=== PATIENT | female | born 1960 | race Caucasian/White ===

== ENCOUNTER 2021-04-15 12:37 | Inpatient (IN) | payer MEDICARE, OTHER ==
[~2021-04-15] VITALS: Ht 170.2 cm; Wt 100.6 kg
[2021-04-15 13:44] LABS: Hematocrit 42.7 % (33.0-51.0); Hemoglobin 14.2 g/dL (11.5-16.0); Mean Corpuscular HGB Conc 33.3 g/dL (31.5-36.5); Mean Corpuscular Volume 84 fL (80-100); Platelet Count 416 K/mm3 (150-400); RDW Coefficient Variation 16.8 % (11.7-14.2); RDW Standard Deviation 51.2 fL (35.1-46.3); Red Blood Cell Count 5.07 M/mm3 (3.80-5.20); White Blood Cell Count 13.28 K/mm3 (4.00-11.30)
[2021-04-15] MEDS ORDERED: BREO ELLIPTA 21 EAC1 INH (14:00)
[2021-04-15] MEDS ORDERED: VENL150ER PO (14:01)
[2021-04-15] MEDS ORDERED: CLONAZEPAM1 MG PO (14:01)
[2021-04-15] MEDS ORDERED: OMEP20ER PO (14:01)
[2021-04-15] MEDS ORDERED: LISI20 PO (14:02)
[2021-04-15] MEDS ORDERED: MINIPRESS2 MG PO (14:02)
[2021-04-15] MEDS ORDERED: GLIP2.5ER PO (14:02)
[2021-04-15] MEDS ORDERED: EUTHYROX150 MC1 PO (14:02)
[2021-04-15] MEDS ORDERED: FLUTICASONE-SA1 EA12 INH (14:03)
[2021-04-15] MEDS ORDERED: METOPROLOL TART50 M5 PO (14:03)
[2021-04-15] MEDS ORDERED: SINGULAIR10 MG PO (14:04)
[2021-04-15] MEDS ORDERED: QUETIAPINE FUM PO (14:04)
[2021-04-15] MEDS ORDERED: COMBIVENT RESPIM4 G1 INH (14:04)
[2021-04-15] MEDS ORDERED: METFORMIN HCL500 M2 PO (14:04)
[2021-04-15] MEDS ORDERED: DYAZIDE 37.5-21 EACH PO ×2 (14:05→14:54)
[2021-04-15] MEDS ORDERED: INCRUSE INH (14:08)
[2021-04-15 14:25] LABS: Alanine Aminotransfer (ALT/SGP 60 U/L (12-78); Albumin, Blood 3.8 g/dL (3.4-5.0); Albumin/Globulin Ratio 0.7 (0.8-1.8); Alk Phos 159 U/L (50-136); Anion Gap 13 mmol/L (6-16); Aspartate Aminotrans (AST/SGOT 32 U/L (12-37); Bilirubin, Total 0.8 mg/dL (0.1-1.0); Blood Urea Nitrogen 43 mg/dL (8-24); Bun/Creatinine Ratio 9.2 (12.0-20.0); CO2, Blood 17 mmol/L (21-32); Calcium, Blood 9.3 mg/dL (8.5-10.1); Chloride, Blood 101 mmol/L (98-108); Creatinine, Blood 4.67 mg/dL (0.40-1.00); Globulin, Blood 5.5 g/dL (2.2-4.0); Glomerular Filtration Rate 10 (60-); Glucose, Blood 164 mg/dL (70-99); Potassium, Blood 4.1 mmol/L (3.5-5.5); Sodium, Blood 131 mmol/L (136-145); Total Protein, Blood 9.3 g/dL (6.4-8.2); Troponin I <0.015 ng/mL (0.000-0.040)
[2021-04-15 14:32] LABS: BAND PERCENT MAN 17 % (0-8); BASOPHILS PERCENT MAN 0 % (0-2); EOSINOPHILS PERCENT MAN 0 % (0-6); LYMPHOCYTES ABSOLUTE MAN 1.85 K/mm3 (0.84-5.20); LYMPHOCYTES PERCENT MAN 14 % (21-46); METAMYELOCYTE ABSOLUTE MAN 0.39 K/mm3 (0.00-0.00); METAMYELOCYTE PERCENT MAN 3 % (0-0); MONOCYTES ABSOLUTE MAN 1.32 K/mm3 (0.16-1.47); MONOCYTES PERCENT MAN 10 % (4-13); MYELOCYTE ABSOLUTE MAN 0.79 K/mm3 (0.00-0.00); MYELOCYTE PERCENT MAN 6 % (0-0); NEUTROPHILS ABSOLUTE MAN 8.76 K/mm3 (1.96-9.15); PROMYELOCYTE ABSOLUTE MAN 0.13 K/mm3 (0.00-0.00); PROMYELOCYTE PERCENT MAN 1 % (0-0); SEG NEUTROPHILS PERCENT MAN 49 % (41-73); TOTAL CELLS COUNTED 100
[2021-04-15] MEDS ORDERED: DICL75ER PO (14:51)
[2021-04-15] MEDS ORDERED: INCRUSE ELPT 62.5 INH (14:51)
[2021-04-15] MEDS ORDERED: QUETIAPINE FUM200 M7 PO (14:53)
--- NOTE | 2021-04-15 19:11 | NUR ---
PT ADMITTED TO MEDICAL FLOOR RM 360. REPORT RECEIVED FROM HERLINDA CUELLAR IN ER. PT ARRIVED TO FLOOR A/O X 4 STANDBY ASSIST TO BED. STABLE ON FEET. ORIENTED TO ROOM/CALL LIGHT. BED IN LOW POSITION. MED LIST/ALLERGIES UPDATED. PT REPORTED SHE DOES NOT TAKE MINIPRESS MEDICATION, REPORTS CPAP USE AT HOME AND REQUESTS SLEEP AID. DR. BAINS NOTIFIED OF PT REQUEST AND REQUEST TO DC MINIPRESS. ORDERS RECEIVED. PT GIVEN FLU VACCINE PER REQUEST IN [place], PRIMO WELL. PT STARTED ON FLAGYL AND BOLUS OF IV FLUIDS 500 MLS. REPORT GIVEN TO ONCOMING ALISA ORTEGA.
[2021-04-15 20:18] LABS: Adenovirus F 40/41 Not Detected (NOT DETECT); Astrovirus Not Detected (NOT DETECT); Campylobacter Sp Not Detected (NOT DETECT); Cryptosporidium Not Detected (NOT DETECT); Cyclospora Cayetanensis Not Detected (NOT DETECT); E. Coli O157 Not Detected (NOT DETECT); Entamoeba Histolytica Not Detected (NOT DETECT); Enteroaggregative E. coli-EAEC Not Detected (NOT DETECT); Enteropathogenic E. coli-EPEC Not Detected (NOT DETECT); Enterotoxigenic E. coli-ETEC Not Detected (NOT DETECT); Giardia Lamblia Not Detected (NOT DETECT); Norovirus GI/GII Not Detected (NOT DETECT); Plesiomonas Shigelloides Not Detected (NOT DETECT); Rotavirus A Not Detected (NOT DETECT); Salmonella Sp Detected (NOT DETECT); Sapovirus Not Detected (NOT DETECT); Shiga Toxin-prod E. coli-STEC Not Detected (NOT DETECT); Shigella/Enteroin E. coli-EIEC Not Detected (NOT DETECT); Vibrio Cholerae Not Detected (NOT DETECT); Vibrio Sp Not Detected (NOT DETECT); Yersinia Enterocolitica Not Detected (NOT DETECT)
--- NOTE | 2021-04-15 23:31 | NUR ---
DR BAINS called & updated on positive salmonella on gi panel. PT on flagyl & rocephin. Nausea medicated with reglan 5 mg with helpful effect. Tolerating oral fluids. CO gen pain 8/10 with some relief with 25 mcg of fentanyl.
[2021-04-16 01:35] LABS: BASOPHILS ABSOLUTE AUTO 0.08 K/mm3 (0.00-0.23); BASOPHILS PERCENT AUTO 1 % (0-2); Hemoglobin 11.1 g/dL (11.5-16.0); LYMPHOCYTES ABSOLUTE AUTO 1.43 K/mm3 (0.84-5.20); LYMPHOCYTES PERCENT AUTO 14 % (21-46); MONOCYTES PERCENT AUTO 11 % (4-13); Mean Corpuscular HGB 27.3 pg (26.0-34.0); Mean Corpuscular HGB Conc 32.6 g/dL (31.5-36.5); Mean Corpuscular Volume 84 fL (80-100); Mean Platelet Volume 9.8 fL (9.1-12.4); Platelet Count 275 K/mm3 (150-400); RDW Coefficient Variation 16.4 % (11.7-14.2); RDW Standard Deviation 50.3 fL (35.1-46.3); Red Blood Cell Count 4.06 M/mm3 (3.80-5.20)
[2021-04-16 01:36] LABS: EOSINOPHILS ABSOLUTE AUTO 0.03 K/mm3 (0.00-0.68); EOSINOPHILS PERCENT AUTO 0 % (0-6); IMMATURE GRAN ABSOLUTE AUTO 0.57 K/mm3 (0.00-0.10); IMMATURE GRAN PERCENT AUTO 6 % (0-1); NEUTROPHILS ABSOLUTE AUTO 6.69 K/mm3 (1.96-9.15); NEUTROPHILS PERCENT AUTO 68 % (41-73)
[2021-04-16 03:37] LABS: Alanine Aminotransfer (ALT/SGP 43 U/L (12-78); Albumin, Blood 2.9 g/dL (3.4-5.0); Albumin/Globulin Ratio 0.7 (0.8-1.8); Alk Phos 124 U/L (50-136); Anion Gap 13 mmol/L (6-16); Aspartate Aminotrans (AST/SGOT 12 U/L (12-37); Bilirubin, Total 0.5 mg/dL (0.1-1.0); Blood Urea Nitrogen 50 mg/dL (8-24); CO2, Blood 15 mmol/L (21-32); Calcium, Blood 7.5 mg/dL (8.5-10.1); Chloride, Blood 102 mmol/L (98-108); Creatinine, Blood 5.56 mg/dL (0.40-1.00); Globulin, Blood 4.2 g/dL (2.2-4.0); Glomerular Filtration Rate 8 (60-); Glucose, Blood 165 mg/dL (70-99); Magnesium, Blood 1.7 mg/dL (1.6-2.4); Potassium, Blood 3.5 mmol/L (3.5-5.5); Sodium, Blood 130 mmol/L (136-145); Total Protein, Blood 7.1 g/dL (6.4-8.2); Troponin I <0.015 ng/mL (0.000-0.040)
[2021-04-16 03:46] LABS: BAND PERCENT MAN 22 % (0-8); BASOPHILS PERCENT MAN 0 % (0-2); EOSINOPHILS PERCENT MAN 0 % (0-6); LYMPHOCYTES ABSOLUTE MAN 1.18 K/mm3 (0.84-5.20); LYMPHOCYTES PERCENT MAN 12 % (21-46); METAMYELOCYTE ABSOLUTE MAN 0.29 K/mm3 (0.00-0.00); METAMYELOCYTE PERCENT MAN 3 % (0-0); MONOCYTES ABSOLUTE MAN 0.79 K/mm3 (0.16-1.47); MONOCYTES PERCENT MAN 8 % (4-13); NEUTROPHILS ABSOLUTE MAN 7.62 K/mm3 (1.96-9.15); SEG NEUTROPHILS PERCENT MAN 55 % (41-73); TOTAL CELLS COUNTED 100
--- NOTE | 2021-04-16 05:40 | NUR ---
60 year old Female with 4 day hx of NVD unable to tolerate any oral intake has acute kidney injury with reatinine over 5 this AM & GFR 8 void x 1 & 1 large diarrhea on BSC. She had GI panel in ER positive for salmonella. She has nausea with no vomiting. Medicated several times with 25 mcg of fentanyl with helpful effect. Reglan 5 mg IV helpful for nausea. On tele ST 103, troponins neg. On facility supplied cpap for MANUEL per RT uses MDI COPD. PT has lt ant calf cat scratch hx of cat scratch fever 40 years ago. PT was cleaning her 55 gallon fishtank & siphoning off dirty water reportedly aspirated some around a week ago. HAd IV fluid bolus, NS at 150 ml hour. Unable to collect urine for UA due to mixed with stool .
[2021-04-16 17:13] LABS: Source, Urine Clean Catch
[2021-04-16 17:22] LABS: Appearance, Urine Cloudy (Clear); Bilirubin, Urine Neg (Neg); Blood, Urine 3+ (Neg); Color, Urine Yellow (P-Yellow); Glucose Qualitative, Urine Neg (Neg); Ketones, Urine Neg (Neg); Leukocyte Esterase, Urine 1+ (Neg); Nitrite, Urine Neg (Neg); Protein, Urine 3+ (Neg); Urobilinogen, Urine NORM (Normal)
[2021-04-16 17:48] LABS: Squamous Epithelial Cells Many /hpf (Few)
[2021-04-16 17:49] LABS: Amorphous Mod (0-Heavy); Bacteria Mod /hpf; Renal Epithelial Few /hpf (0-Rare); Transitional Epithelial Cells Mod /hpf (0-Rare)
--- NOTE | 2021-04-16 18:19 | NUR ---
SHIFT SUMMARY: NO ACUTE EVENTS. NO EVENTS ON TELEMETRY, SR-ST 98-105. C/O 8-03/15 CHRONIC PAIN IN R SHOULDER; MEDICATED PER EMAR. STATED THAT OXYCODONE 5 MG "TOOK THE EDGE OFF" THE PAIN BUT DID NOT RELIEVE IT ENOUGH FOR HER TO BE COMFORTABLE; REQUESTING TRAMADOL INSTEAD. REQUIRED MUCH EDUCATION ABOUT MEDICATIONS THAT SHE CAN OR CANNOT HAVE D/T HER KIDNEY INJURY. C/O NAUSEA X1, NO EMESIS, MEDICATED PER EMAR WITH RELIEF. URINE SPECIMEN SENT. GETTING UP TO BSC INDEPENDENTLY. HAVING OCC ANXIETY, DECLINED MEDICATION. STILL HAVING SOME DIARRHEA, BUT IT HAS SLOWED PER HER REPORT. PO INTAKE POOR, ENCOURAING.
[2021-04-17 04:56] LABS: Hematocrit 31.2 % (33.0-51.0); Hemoglobin 10.4 g/dL (11.5-16.0); Mean Corpuscular HGB 27.4 pg (26.0-34.0); Mean Corpuscular HGB Conc 33.3 g/dL (31.5-36.5); Mean Corpuscular Volume 82 fL (80-100); Mean Platelet Volume 10.1 fL (9.1-12.4); Platelet Count 277 K/mm3 (150-400); White Blood Cell Count 8.91 K/mm3 (4.00-11.30)
[2021-04-17 05:18] LABS: Albumin, Blood 2.7 g/dL (3.4-5.0); Anion Gap 11 mmol/L (6-16); Blood Urea Nitrogen 53 mg/dL (8-24); Bun/Creatinine Ratio 9.7 (12.0-20.0); CO2, Blood 15 mmol/L (21-32); Calcium, Blood 7.6 mg/dL (8.5-10.1); Chloride, Blood 106 mmol/L (98-108); Creatinine, Blood 5.48 mg/dL (0.40-1.00); Glomerular Filtration Rate 8 (60-); Glucose, Blood 163 mg/dL (70-99); Potassium, Blood 2.9 mmol/L (3.5-5.5); Sodium, Blood 132 mmol/L (136-145)
--- NOTE | 2021-04-17 07:02 | NUR ---
PT continues with acute renal injury salmonella after injesting fish tank water. RT shoulder chronic pain , needs rt total shoulder replacement. Wants second opinion on need for joan joint replacement. Medicated for 8/10 shoulder pain with helpful effect. No solid intake continues on liquids. Diarrhea on bedside commode, voids some positive UA C & S pending.
[2021-04-17 16:35] LABS: Bun/Creatinine Ratio 13.1 (12.0-20.0); Calcium, Blood 8.1 mg/dL (8.5-10.1); Creatinine, Blood 3.89 mg/dL (0.40-1.00); Potassium, Blood 3.8 mmol/L (3.5-5.5)
--- NOTE | 2021-04-17 18:15 | NUR ---
SHIFT SUMMARY: NO ACUTE EVENTS. NO EVENTS ON TELE, SR-ST 95-102. C/O R SHOULDER AND DIAPHRAGM PAIN; MEDICATED PER EMAR WITH SOME RELIEF. TOLERATING PO INTAKE, DRINKING QUITE A BIT OF ICE WATER. EDUCATED PATIENT ABOUT NORMAL KIDNEY VALUES VS. HER KIDNEY VALUES SO THAT SHE WOULD UNDERSTAND THE SEVERITY OF HER DISEASE. HOME INHALERS BROUGHT IN AND VERIFIED BY PHARMACY. WAS ABLE TO TAKE A SHOWER WITH ASSISTANCE. POTASSIUM REPLACED. HAVING LOOSE STOOL, BUT DECREASED FREQUENCY.
--- NOTE | 2021-04-17 19:27 | NUR ---
ADDENDUM: PUBLICITY PERSON REPORTED PT HAD ST DEPRESSION ON RHYTHM THIS MORNING. ECG DONE, SHOWED SAME. RESEARCHED ADMISSION ECG WHICH SHOWED SAME RHYTHM.
--- NOTE | 2021-04-18 04:30 | NUR ---
SHIFT SUMMARY PT IS A&OX4. RESP EVEN AND UNLABORED. PT C/O PAIN IN RIGHT SHOULDER. PRN PAIN MED ADMINISTERED WITH GOOD EFFECTS. N/S 75ML/HR RUNNING ON 20G LEFT AC. ADLS PROVIDED. SAFETY MEASURES IN PLACE. WILL CONTINUE TO MONITOR.
[2021-04-18 04:46] LABS: Hematocrit 30.2 % (33.0-51.0); Hemoglobin 10.1 g/dL (11.5-16.0); Mean Corpuscular HGB 27.4 pg (26.0-34.0); Mean Corpuscular HGB Conc 33.4 g/dL (31.5-36.5); Mean Corpuscular Volume 82 fL (80-100); Mean Platelet Volume 9.8 fL (9.1-12.4); Platelet Count 283 K/mm3 (150-400); RDW Standard Deviation 48.2 fL (35.1-46.3); Red Blood Cell Count 3.68 M/mm3 (3.80-5.20); White Blood Cell Count 9.74 K/mm3 (4.00-11.30)
[2021-04-18 05:09] LABS: Albumin, Blood 2.7 g/dL (3.4-5.0); Anion Gap 7 mmol/L (6-16); Blood Urea Nitrogen 41 mg/dL (8-24); Bun/Creatinine Ratio 16.7 (12.0-20.0); CO2, Blood 17 mmol/L (21-32); Calcium, Blood 8.4 mg/dL (8.5-10.1); Chloride, Blood 114 mmol/L (98-108); Creatinine, Blood 2.46 mg/dL (0.40-1.00); Glomerular Filtration Rate 20 (60-); Glucose, Blood 135 mg/dL (70-99); Phosphorus, Blood 3.9 mg/dL (2.5-4.9); Potassium, Blood 3.8 mmol/L (3.5-5.5); Sodium, Blood 138 mmol/L (136-145)
--- NOTE | 2021-04-18 17:43 | NUR ---
SHIFT SUMMARY PATIENT IS ALERT AND ORIENTED, AND COOPERATIVE WITH CARE. PATIENT'S BLOOD PRESSURE HAS BEEN ELEVATED THIS AFTERNOON, SYSTOLIC'S IN HIGH 170'S TO 180'S. PATIENT RECEIVED ONE DOSE OF NORVASC 5MG , AND ONE DOSE OF HYDRALIZINE IV A HOUR AFTER DUE TO NO CHANGE. PATIENT'S PRESSURES HAVE STARTED TO COME DOWN. LAST BP WAS 174/98, PATIENT DENIES ANY CHEST PAIN OR SHORTNESS OF BREATH AT THIS TIME. PATIENT HAS HISTORY OF HYPERTENSION. PATIENT DOES SAY THEY HAVE BLOOD PRESSURE MEDICATIONS AT HOME. THIS NURSE WILL CONTINUE TO MONITOR THE PATIENT UNTIL SHIFT CHANGE.
[2021-04-19 04:51] LABS: Albumin, Blood 2.8 g/dL (3.4-5.0); Anion Gap 4 mmol/L (6-16); Blood Urea Nitrogen 23 mg/dL (8-24); CO2, Blood 21 mmol/L (21-32); Calcium, Blood 8.8 mg/dL (8.5-10.1); Chloride, Blood 113 mmol/L (98-108); Creatinine, Blood 1.21 mg/dL (0.40-1.00); Glomerular Filtration Rate 45 (60-); Glucose, Blood 144 mg/dL (70-99); Phosphorus, Blood 2.7 mg/dL (2.5-4.9); Potassium, Blood 3.8 mmol/L (3.5-5.5); Sodium, Blood 138 mmol/L (136-145)
--- NOTE | 2021-04-19 05:13 | NUR ---
END OF SHIFT SUMMARY: Pt A&Ox4. Independent in room. Pt is complaining of headache. Medicated per eMAR. No acute events overnight. Able to voice needs, call light within reach. Pt is resting at this time with wet rag over to relieve headache symptoms.
[2021-04-19] MEDS ORDERED: AMLO5 PO (11:31)
[2021-04-19] MEDS ORDERED: TRAM50 PO (12:41)
--- NOTE | 2021-04-19 13:55 | NUR ---
discharge reviewed with pt. she states underestanding meds and inst. handed tramadol rx. no tele iv remmoved intact. pt dressed self. mom here to drive homem. wheeled to door by aide at [id number]
== END 2021-04-19 14:00 | disposition home or self-care (01) | DRG 872 ==
LOC: ER 12:37 → MEDS 16:05
PROVIDERS: Internal Medicine; Nurse Practitioner Acute Care; Physician Assistant; ADMIT Internal Medicine
DX: A02.1 Salmonella sepsis (principal); N17.9 Acute kidney failure, unspecified; E87.2 Acidosis; A02.0 Salmonella enteritis; J44.9 Chronic obstructive pulmonary disease, unspecified; E87.6 Hypokalemia; E03.9 Hypothyroidism, unspecified; G47.33 Obstructive sleep apnea (adult) (pediatric); K21.9 Gastro-esophageal reflux disease without esophagitis; E66.01 Morbid (severe) obesity due to excess calories; I12.9 Hypertensive chronic kidney disease with stage 1 through stage 4 chronic kidney disease, or unspecified chronic kidney disease; E11.22 Type 2 diabetes mellitus with diabetic chronic kidney disease; M54.50 Low back pain, unspecified; N18.30 Chronic kidney disease, stage 3 unspecified; F41.8 Other specified anxiety disorders; G89.29 Other chronic pain; M25.511 Pain in right shoulder; I95.2 Hypotension due to drugs; T50.2X5A Adverse effect of carbonic-anhydrase inhibitors, benzothiadiazides and other diuretics, initial encounter; T46.4X5A Adverse effect of angiotensin-converting-enzyme inhibitors, initial encounter; Z68.31 Body mass index [BMI] 31.0-31.9, adult; Z99.89 Dependence on other enabling machines and devices; Z79.84 Long term (current) use of oral hypoglycemic drugs; Z79.899 Other long term (current) drug therapy
CPT/HCPCS: 0097U; 36415; 71046; 74176; 80048; 80053; 80069; 81001; 82550; 82947; 83605; 83690; 83735; 84484; 85025; 85027; 87040; 87086; 90686; 93005; 93010; 94660; 94762; 96361; 96374; 99285-25; A9270; G0008; J0360; J0696; J1644; J2405; J2765; J3010; J7030

== ENCOUNTER → 2022-06-12 | Outpatient (CLI) | payer MEDICARE, OTHER ==
[~2022-06-12] MED LIST: AMLO5 PO; BREO ELLIPTA 21 EAC1 INH; CLONAZEPAM1 MG PO; COMBIVENT RESPIM4 G1 INH; DICL75ER PO; DYAZIDE 37.5-21 EACH PO; EUTHYROX150 MC1 PO; FLUTICASONE-SA1 EA12 INH; GLIP2.5ER PO; INCRUSE ELPT 62.5 INH; INCRUSE INH; LISI20 PO; METFORMIN HCL500 M2 PO; METOPROLOL TART50 M5 PO; MINIPRESS2 MG PO; OMEP20ER PO; QUETIAPINE FUM PO; QUETIAPINE FUM200 M7 PO; SINGULAIR10 MG PO; TRAM50 PO; VENL150ER PO
[2022-06-12 19:07] LABS: BASOPHILS ABSOLUTE AUTO 0.07 K/mm3 (0.00-0.23); BASOPHILS PERCENT AUTO 0 % (0-2); EOSINOPHILS ABSOLUTE AUTO 0.17 K/mm3 (0.00-0.68); EOSINOPHILS PERCENT AUTO 1 % (0-6); Hematocrit 33.7 % (33.0-51.0); Hemoglobin 10.9 g/dL (11.5-16.0); IMMATURE GRAN ABSOLUTE AUTO 0.17 K/mm3 (0.00-0.10); IMMATURE GRAN PERCENT AUTO 1 % (0-1); LYMPHOCYTES ABSOLUTE AUTO 2.53 K/mm3 (0.84-5.20); LYMPHOCYTES PERCENT AUTO 15 % (21-46); MONOCYTES ABSOLUTE AUTO 1.34 K/mm3 (0.16-1.47); MONOCYTES PERCENT AUTO 8 % (4-13); Mean Corpuscular HGB 28.1 pg (26.0-34.0); Mean Corpuscular HGB Conc 32.3 g/dL (31.5-36.5); Mean Corpuscular Volume 87 fL (80-100); Mean Platelet Volume 10.4 fL (9.1-12.4); NEUTROPHILS ABSOLUTE AUTO 12.18 K/mm3 (1.96-9.15); NEUTROPHILS PERCENT AUTO 74 % (41-73); NRBC ABSOLUTE 0.02 K/mm3 (0.00-0.02); NRBC Auto 0.1 /100 WBC (0.0-0.2); Platelet Count 311 K/mm3 (150-400); RDW Coefficient Variation 15.5 % (11.7-14.2); RDW Standard Deviation 48.9 fL (35.1-46.3); Red Blood Cell Count 3.88 M/mm3 (3.80-5.20); White Blood Cell Count 16.46 K/mm3 (4.00-11.30)
[2022-06-12 20:41] LABS: Bun/Creatinine Ratio 16.4 (12.0-20.0); Calcium, Blood 8.8 mg/dL (8.5-10.1); Creatinine, Blood 0.85 mg/dL (0.40-1.00); Potassium, Blood 4.1 mmol/L (3.5-5.5)
== END | disposition home or self-care (01) ==
LOC: LAB SHORT 15:50 → LAB 15:50
PROVIDERS: Nurse Practitioner Family
DX: E11.9 Type 2 diabetes mellitus without complications (principal); R32 Unspecified urinary incontinence
CPT/HCPCS: 80048; 85025; 87086

== ENCOUNTER → 2022-08-28 | Outpatient (CLI) | payer MEDICARE, OTHER ==
[2022-08-28 19:37] LABS: BASOPHILS ABSOLUTE AUTO 0.06 K/mm3 (0.00-0.23); BASOPHILS PERCENT AUTO 1 % (0-2); EOSINOPHILS ABSOLUTE AUTO 0.16 K/mm3 (0.00-0.68); EOSINOPHILS PERCENT AUTO 1 % (0-6); Hematocrit 34.3 % (33.0-51.0); Hemoglobin 11.5 g/dL (11.5-16.0); IMMATURE GRAN ABSOLUTE AUTO 0.06 K/mm3 (0.00-0.10); IMMATURE GRAN PERCENT AUTO 1 % (0-1); LYMPHOCYTES ABSOLUTE AUTO 3.18 K/mm3 (0.84-5.20); LYMPHOCYTES PERCENT AUTO 28 % (21-46); MONOCYTES ABSOLUTE AUTO 0.79 K/mm3 (0.16-1.47); MONOCYTES PERCENT AUTO 7 % (4-13); Mean Corpuscular HGB 28.9 pg (26.0-34.0); Mean Corpuscular HGB Conc 33.5 g/dL (31.5-36.5); Mean Corpuscular Volume 86 fL (80-100); Mean Platelet Volume 9.9 fL (9.1-12.4); NEUTROPHILS ABSOLUTE AUTO 7.09 K/mm3 (1.96-9.15); NEUTROPHILS PERCENT AUTO 63 % (41-73); Platelet Count 284 K/mm3 (150-400); RDW Coefficient Variation 15.9 % (11.7-14.2); RDW Standard Deviation 50.4 fL (35.1-46.3); Red Blood Cell Count 3.98 M/mm3 (3.80-5.20); White Blood Cell Count 11.34 K/mm3 (4.00-11.30)
[2022-08-28 20:11] LABS: Calcium, Blood 9.3 mg/dL (8.5-10.1); Creatinine, Blood 0.89 mg/dL (0.40-1.00)
== END | disposition home or self-care (01) ==
LOC: LAB SHORT 17:15
PROVIDERS: Nurse Practitioner Family
DX: E11.9 Type 2 diabetes mellitus without complications (principal)
CPT/HCPCS: 80048; 83036; 85025

== ENCOUNTER → 2022-12-04 | Outpatient (CLI) | payer MEDICARE, OTHER ==
[2022-12-04 18:45] LABS: BASOPHILS ABSOLUTE AUTO 0.06 K/mm3 (0.00-0.23); BASOPHILS PERCENT AUTO 0 % (0-2); EOSINOPHILS PERCENT AUTO 1 % (0-6); Hematocrit 34.9 % (33.0-51.0); Hemoglobin 11.5 g/dL (11.5-16.0); IMMATURE GRAN PERCENT AUTO 1 % (0-1); LYMPHOCYTES ABSOLUTE AUTO 3.48 K/mm3 (0.84-5.20); LYMPHOCYTES PERCENT AUTO 24 % (21-46); MONOCYTES ABSOLUTE AUTO 1.05 K/mm3 (0.16-1.47); MONOCYTES PERCENT AUTO 7 % (4-13); Mean Corpuscular HGB 28.9 pg (26.0-34.0); Mean Corpuscular Volume 88 fL (80-100); Mean Platelet Volume 10.3 fL (9.1-12.4); NEUTROPHILS ABSOLUTE AUTO 9.55 K/mm3 (1.96-9.15); NEUTROPHILS PERCENT AUTO 66 % (41-73); Platelet Count 332 K/mm3 (150-400); RDW Coefficient Variation 14.6 % (11.7-14.2); RDW Standard Deviation 46.5 fL (35.1-46.3); Red Blood Cell Count 3.98 M/mm3 (3.80-5.20); White Blood Cell Count 14.44 K/mm3 (4.00-11.30)
[2022-12-04 19:59] LABS: Albumin, Blood 3.9 g/dL (3.4-5.0); Albumin/Globulin Ratio 1.1 (0.8-1.8); Bilirubin, Total 0.2 mg/dL (0.1-1.0); Bun/Creatinine Ratio 18.1 (12.0-20.0); Calcium, Blood 8.9 mg/dL (8.5-10.1); Creatinine, Blood 0.88 mg/dL (0.40-1.00); Free Thyroxine 0.97 ng/dL (0.70-1.60); Globulin, Blood 3.5 g/dL (2.2-4.0); Potassium, Blood 3.8 mmol/L (3.5-5.5); Thyroid Stimulating Hormone 10.5 uIU/mL (0.360-4.800); Total Protein, Blood 7.4 g/dL (6.4-8.2)
== END ==
LOC: LAB 16:58 → LAB SHORT 16:58
PROVIDERS: Nurse Practitioner Family
DX: E11.8 Type 2 diabetes mellitus with unspecified complications (principal); E03.9 Hypothyroidism, unspecified
CPT/HCPCS: 80053; 84439; 84443; 85025

== ENCOUNTER → 2023-06-01 | Outpatient (CLI) | payer MEDICARE, OTHER ==
[2023-06-01 21:29] LABS: Bun/Creatinine Ratio 18.6 (12.0-20.0); Calcium, Blood 8.9 mg/dL (8.5-10.1); Creatinine, Blood 0.81 mg/dL (0.40-1.00); Potassium, Blood 4.1 mmol/L (3.5-5.5); Thyroid Stimulating Hormone 3.46 uIU/mL (0.360-4.800)
== END | disposition home or self-care (01) ==
LOC: LAB SHORT 18:18 → LAB 18:18
PROVIDERS: Nurse Practitioner Family
DX: E11.8 Type 2 diabetes mellitus with unspecified complications (principal); I10 Essential (primary) hypertension
CPT/HCPCS: 80048; 84443